=== PATIENT | female | born 1990 | race Caucasian/White ===

== ENCOUNTER 2023-05-23 07:30 | Emergency (ER) | payer OTHER ==
[2023-05-23 08:08] LABS: BILIRUBIN,URINE NEGATIVE (NEGATIVE); GLUCOSE, URINE (UA) NEGATIVE (NEGATIVE); KETONES,URINE (UA) NEGATIVE (NEGATIVE); LEUKOCYTE ESTERASE, URINE NEGATIVE (NEGATIVE); NITRITE,URINE NEGATIVE (NEGATIVE); OCCULT BLOOD,URINE TRACE-INTA (NEGATIVE); PH,URINE 7.5 PH (5.0-7.5); PROTEIN,URINE NEGATIVE (NEGATIVE); UROBILINOGEN,URINE 0.2 (NORMAL) E.U./dL (NORMAL)
[2023-05-23 08:12] LABS: CLARITY,URINE CLEAR (CLEAR); HCG UR QUAL NEGATIVE
[2023-05-23 08:15] LABS: BASOPHILS # (AUTO) 0.1 10^3/uL (0.0-0.1); BASOPHILS % (AUTO) 0.5 %; EOSINOPHILS # (AUTO) 0.2 10^3/uL (0.0-0.7); EOSINOPHILS % (AUTO) 1.8 %; HCT - HEMATOCRIT 37.5 % (37.0-47.0); HGB - HEMOGLOBIN 12.1 g/dL (12.0-16.0); LYMPHOCYTES # (AUTO) 2.2 10^3/uL (1.5-3.5); LYMPHOCYTES % (AUTO) 19.6 %; MEAN CORPUSCULAR HEMOGLOBIN 28.7 pg (27.0-31.0); MEAN CORPUSCULAR HGB CONC 32.3 g/dL (32.0-36.0); MEAN CORPUSCULAR VOLUME 88.9 fL (81.0-99.0); MEAN PLATELET VOLUME 10.7 fL (7.9-10.8); MONOCYTES # (AUTO) 0.5 10^3/uL (0.0-1.0); MONOCYTES % (AUTO) 4.6 %; NEUTROPHILS # (AUTO) 8.1 10^3/uL (1.5-6.6); NEUTROPHILS % (AUTO) 73.2 %; PLT - PLATELET COUNT 238 10^3/uL (130-450); RED BLOOD COUNT 4.22 10^6/uL (4.20-5.40); RED CELL DISTRIBUTION WIDTH 14.5 % (12.0-15.0)
[2023-05-23] MEDS ORDERED: ONDANSETRON 4 MG/2 ML VIAL IVP STA (08:27)
[2023-05-23] MEDS ORDERED: KETOROLAC 30 MG/ML VIAL IVP STA (08:27)
[2023-05-23 08:30] LABS: ALBUMIN 4.4 g/dL (3.2-5.5); ALBUMIN/GLOBULIN RATIO 1.6 (1.0-2.2); BILIRUBIN,TOTAL 0.3 mg/dL (0.2-1.0); CREATININE 0.7 mg/dL (0.6-1.3); POTASSIUM 3.6 mmol/L (3.5-4.5); TOTAL PROTEIN 7.2 g/dL (6.4-8.9)
--- NOTE | 2023-05-23 08:31 | ED Physician Documentation ---
PD HPI ABD PAIN - Stated complaint Stated Complaint: ABD PX - Chief complaint Chief Complaint: Abd Pain - History obtained from History obtained from: Patient, Family ( Kathie) - History of Present Illness Timing - onset: Enter time (0000), Today Timing - duration: Hours Timing - details: Abrupt onset, Still present Quality: Sharp, Pain Location: RUQ Radiation: Right flank Improved by: Laying still, Vomiting Worsened by: Moving, Breathing, Position, Palpation Associated symptoms: Nausea, Vomiting Similar symptoms before: Has not had sx before Recently seen: Not recently seen - Additional information Additional information: Previously well Sheila Hazel awoke at midnight with sharp right upper quadrant abdominal pain she had nausea and vomiting associated. She has not had resolution of her symptoms and comes in this morning. She indicates that her symptoms are worse if she is laying flat or laying on her side. She acknowledges worsening of pain with a deep breath. She has not had these symptoms previously. She has not otherwise been ill recently. Review of Systems Constitutional: denies: Fever, Chills, Myalgias Ears: denies: Ear pain Nose: denies: Congestion Throat: denies: Sore throat Cardiac: denies: Chest pain / pressure Respiratory: denies: Dyspnea, Cough GI: reports: Abdominal Pain, Nausea, Vomiting. denies: Constipation, Diarrhea : denies: Dysuria, Frequency Skin: denies: Rash Musculoskeletal: reports: Back pain. 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 : None HEENT: None Psych: None Musculoskeletal: None Derm: None - Past Surgical History Past Surgical History: No - Present Medications Home Medications: Ambulatory Orders Medication Instructions Recorded Confirmed HYDROcod/ACETAM 5/325 [[place] 5/325] 1 - 2 tablet PO Q6H PRN #14 tablet 05/23/23 Ondansetron Odt [Zofran] 4 mg TL Q6H PRN #10 tablet 05/23/23 - Allergies Allergies/Adverse Reactions: Allergies Allergy/AdvReac Type Severity Reaction Status Date / Time No Known Drug Allergies Allergy Verified 05/23/23 07:53 - Social History Does the pt smoke?: No Smoking Status: Former smoker Does the pt drink ETOH?: Yes Does the pt have substance abuse?: Yes Substance Use and Type: Marijuana - Immunizations Immunizations are current?: Yes PD ED PE NORMAL - Vitals Vital signs reviewed: Yes (normal ) - General General: Alert and oriented X 3, No acute distress, Well developed/nourished, Other (32-year-old female clutching an emesis bag is able to give adequate history.) - HEENT HEENT: Atraumatic, PERRL, EOMI - Neck Neck: Supple, no meningeal sign, No bony TTP - Respiratory Respiratory: No respiratory distress, Clear bilaterally - Abdomen Abdomen: Normal bowel sounds, Soft, Non distended, No organomegaly, Other (RUQ pain to palpation worse with inspiration. 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, No motor deficit, No sensory deficit, Normal speech Eye Opening: Spontaneous Motor: Obeys Commands Verbal: Oriented GCS Score: 15 - Psych Psych: Normal mood, Normal affect Results - Vitals Vitals: Vital Signs - 24 hr 05/23/23 05/23/23 05/23/23 07:54 09:24 10:29 Temperature 36.2 C L Heart Rate 64 57 L 52 L Respiratory 18 13 25 H Rate Blood Pressure 130/77 123/62 115/70 O2 Saturation 100 100 97 Oxygen O2 Source Room air - Labs Labs: Laboratory Tests 05/23/23 05/23/23 05/23/23 08:00 08:10 08:10 WBC 11.0 H RBC 4.22 Hgb 12.1 Hct 37.5 MCV 88.9 MCH 28.7 MCHC 32.3 RDW 14.5 Plt Count 238 MPV 10.7 Neut # (Auto) 8.1 H Lymph # (Auto) 2.2 [place] # (Auto) 0.5 Eos # (Auto) 0.2 Baso # (Auto) 0.1 Absolute Nucleated RBC 0.00 Nucleated RBC % 0.0 Sodium 137 Potassium 3.6 Chloride 106 Carbon Dioxide 25 Anion Gap 6.0 BUN 12 Creatinine 0.7 Estimated GFR (MDRD) 98 Glucose 131 H Calcium 9.0 Total Bilirubin 0.3 AST 18 ALT 27 Alkaline Phosphatase 67 Total Protein 7.2 Albumin 4.4 Globulin 2.8 Albumin/Globulin Ratio 1.6 Lipase 18 Urine Color YELLOW Urine Clarity CLEAR Urine pH 7.5 Ur Specific [place] 1.020 Urine Protein NEGATIVE Urine Glucose (UA) NEGATIVE Urine Ketones NEGATIVE Urine Occult Blood TRACE-INTA Urine Nitrite NEGATIVE Urine Bilirubin NEGATIVE Urine Urobilinogen 0.2 (NORMAL) Ur Leukocyte Esterase NEGATIVE Ur Microscopic Review NOT INDICATED Urine Culture Comments NOT INDICATED Urine HCG, Qual NEGATIVE - Rads (name of study) ultrasound of GB Relevant Findings:: Prelim report reviewed (Impression: Multiple layering, shadowing gallstones can be seen within the gallbladder. There is a positive sonographic Bond sign. No additional sonographic signs of cholecystitis are seen. No biliary dilation. enlarged minimally fatty infiltrated liver), EMP independent interpretation of test Procedures - Bedside sono Bedside sono by EMP: With use of POCUS I imaged the gallbladder there is obvious stones that are shadowing I do not see pericholecystic fluid or thickening of the gallbladder wall. PD Medical Decision Making - ED course Complexity details: considered differential, d/w patient, d/w family Reviewed Lab Results: We reviewed a complete blood count showing a mildly elevated white blood cell count of 11,000 normal hemoglobin hematocrit and platelets chemistries were unremarkable with normal electrolytes normal kidney and liver function urinalysis is unremarkable showing specific gravity 1.020 and a negative test in light of the patient's symptoms of right upper quadrant pain and multiple gallstones found on POCUS and formal ultrasound my interpretation of these laboratory values are reassuring for no evidence of obstruction. ED course: 32-year-old female with multiple gallstones has had her first gallbladder attack and she has some improvement with the use of Zofran and Toradol. She does still have some tenderness to her gallbladder but no evidence of cholecystitis on ultrasound examination. She has a mildly elevated white blood cell count. I have asked the patient to return should she have persistence of her pain. I have recommended the patient follow-up with the surgeon this week and to use a fat-free diet. Departure - Departure Disposition: 01 Home, Self Care Clinical Impression: Cholelithiasis Qualifiers: Cholelithiasis location: gallbladder Cholecystitis presence: without cholecystitis Biliary obstruction: without biliary obstruction Qualified Code(s): K80.20 - Calculus of gallbladder without cholecystitis without obstruction Condition: Stable Instructions: ED Gallstone W Biliary Colic Follow-Up: Landry Amezquita MD [Provider Admit Priv/Credential] - Prescriptions: HYDROcod/ACETAM 5/325 [[place] 5/325] 1 - 2 tablet PO Q6H PRN #14 tablet PRN Reason: Pain Ondansetron Odt [Zofran] 4 mg TL Q6H PRN #10 tablet PRN Reason: Nausea / Vomiting Comments: Sheila, today it looks like your gallbladder has multiple stones and you have had a gallbladder attack. We did not find evidence of Cholecystitis on the ultrasound examination other than the gallbladder being tender. There is still concern for this etiology. A cholecystitis is an inflammation of the gallbladd er that will not go away within the day. If you continue to have pain and nausea return to the emergency department as we will likely need to admit you until we can get your gallbladder out. I have E scribed some pain medication and nausea medicine to the [facility] in [place]. If you have resolution of your pain today avoid fatty meals and follow-up with the surgeon as soon as you can. I have given you Dr. Amezquita's number. Forms: PCP List Discharge Date/Time: 05/23/23 10:44
--- NOTE | 2023-05-23 09:15 | Ultrasound Report ---
PROCEDURE: Abdomen Limited INDICATIONS: RUQ pain tenderness stones on POCUS TECHNIQUE: Real-time focused scanning was performed of the abdomen, with image documentation. COMPARISONS: None. FINDINGS: Liver: The liver demonstrates enlarged size at 17 mm. The liver demonstrates minimally increased ech ogenicity, which limits ultrasound sensitivity for detection of masses. Gallbladder: Multiple shadowing, layering gallstones are seen. No evidence of stones can be seen of t he gallbladder neck. The gallbladder wall does not appear thickened. There is no specific pericholecy stic fluid. The sonographic Bond's sign is positive. Biliary ducts: Intrahepatic bile ducts are non-dilated. Extrahepatic bile duct caliber measures 4 m m. Normal is 6-7 mm or less in diameter, or 10 mm or less post-cholecystectomy. Pancreas: Visualized portions of the pancreas are sonographically normal. Right kidney: Normal in size and echotexture. Right kidney measures 9.7 cm long. No hydronephrosis o r nephrolithiasis. No solid masses. No complex renal cystic lesions which require follow-up. IVC: Intrahepatic inferior vena cava is patent. Miscellaneous: No free abdominal fluid. IMPRESSION: Multiple layering, shadowing gallstones can be seen within the gallbladder. There is a positive sonog raphic Bond sign. No additional sonographic signs of cholecystitis are seen. No biliary dilatation. Additional findings: Enlarged, minimally fatty infiltrated liver. Note: Concordant preliminary findings given by the duco polisher upon the completion of the examination to Dr. Gentile. Reviewed by: Tristan Russell MD on 05/23/2023 8:14 AM JONNATHAN Approved by: Tristan Russell MD on 05/23/2023 8:14 AM JONNATHAN Station ID: [id number]
[2023-05-23 10:35] VITALS: BP 115/70; O2SAT 97
== END 2023-05-23 10:44 | disposition home or self-care (01) ==
LOC: ED 07:30
DX: K80.20 Calculus of gallbladder without cholecystitis without obstruction (principal); Z87.891 Personal history of nicotine dependence
CPT/HCPCS: 36415; 80053; 81001; 81003; 81025; 83690; 85025; 87086; 96374; 99284